=== PATIENT | male | born 1990 | race Caucasian/White ===

== ENCOUNTER 2025-02-01 12:43 | Emergency (ER) | payer OTHER ==
[~2025-02-01] VITALS: Ht 170.2 cm; Wt 68.0 kg
[2025-02-01 13:06] VITALS: BP 144/95
[2025-02-02] MEDS ORDERED: LIDO700A20 TOP (04:47)
[2025-02-02] MEDS ORDERED: Ibuprofen600 MG PO (04:47)
[2025-02-02] MEDS ORDERED: HYDR1TAB94 PO (04:47)
== END 2025-02-01 13:11 | disposition home or self-care (01) ==
LOC: ER 12:43
DX: F11.90 Opioid use, unspecified, uncomplicated (principal); Z76.0 Encounter for issue of repeat prescription
CPT/HCPCS: 99282

== ENCOUNTER 2025-02-01 22:56 | Emergency (ER) | payer OTHER ==
[~2025-02-01] VITALS: Ht 177.8 cm; Wt 74.8 kg
[2025-02-01 23:08] VITALS: BP 132/96
[2025-02-02 00:57] LABS: BASOPHILS ABSOLUTE AUTO 0.04 K/mm3 (0.00-0.23); BASOPHILS PERCENT AUTO 0 % (0-2); EOSINOPHILS ABSOLUTE AUTO 0.08 K/mm3 (0.00-0.68); EOSINOPHILS PERCENT AUTO 1 % (0-6); Hematocrit 41.1 % (37.0-53.0); Hemoglobin 14.1 g/dL (13.5-17.5); IMMATURE GRAN ABSOLUTE AUTO 0.07 K/mm3 (0.00-0.10); IMMATURE GRAN PERCENT AUTO 1 % (0-1); LYMPHOCYTES ABSOLUTE AUTO 2.74 K/mm3 (0.84-5.20); LYMPHOCYTES PERCENT AUTO 19 % (21-46); MONOCYTES ABSOLUTE AUTO 1.36 K/mm3 (0.16-1.47); MONOCYTES PERCENT AUTO 10 % (4-13); Mean Corpuscular HGB 30.4 pg (26.0-34.0); Mean Corpuscular HGB Conc 34.3 g/dL (31.5-36.5); Mean Corpuscular Volume 89 fL (80-100); Mean Platelet Volume 9.7 fL (9.1-12.4); NEUTROPHILS ABSOLUTE AUTO 10.08 K/mm3 (1.96-9.15); NEUTROPHILS PERCENT AUTO 70 % (41-73); Platelet Count 343 K/mm3 (150-400); RDW Standard Deviation 42.3 fL (35.1-46.3); Red Blood Cell Count 4.64 M/mm3 (4.30-5.90); White Blood Cell Count 14.37 K/mm3 (4.00-11.30)
[2025-02-02 01:21] LABS: Albumin, Blood 4.3 g/dL (3.4-5.0); Albumin/Globulin Ratio 1.2 (0.8-1.8); Bilirubin, Total 0.2 mg/dL (0.1-1.0); Bun/Creatinine Ratio 25.6 (12.0-20.0); Calcium, Blood 9.1 mg/dL (8.5-10.1); Creatinine, Blood 0.86 mg/dL (0.60-1.20); Globulin, Blood 3.7 g/dL (2.2-4.0); Potassium, Blood 3.7 mmol/L (3.5-5.5)
[2025-02-02] MEDS ORDERED: NS 1,000 ML IV SCH (02:25)
[2025-02-02] MEDS ORDERED: Morphine Sulfate 4 MG/1 ML Injection IV ONE (02:25)
[2025-02-02] MEDS ORDERED: Ondansetron HCl 2 MG / ML 2ML Vial IV ONE (02:25)
[2025-02-02] MEDS ORDERED: HYDR1TAB94 PO (04:47)
[2025-02-02] MEDS ORDERED: Ibuprofen600 MG PO (04:47)
[2025-02-02] MEDS ORDERED: LIDO700A20 TOP (04:47)
== END 2025-02-02 05:04 | disposition home or self-care (01) ==
LOC: ER 22:56
PROVIDERS: Student in an Organized Health Care Education/Training Program
DX: S32.029A Unspecified fracture of second lumbar vertebra, initial encounter for closed fracture (principal); S32.039A Unspecified fracture of third lumbar vertebra, initial encounter for closed fracture; S32.049A Unspecified fracture of fourth lumbar vertebra, initial encounter for closed fracture; V29.99XA Rider (driver) (passenger) of other motorcycle injured in unspecified traffic accident, initial encounter
CPT/HCPCS: 70450; 71260; 72125; 72131; 72192; 74177; 80053; 85025; 96374-59; 96375; 99284-25; J2270; J2405; J7030; Q9967

== ENCOUNTER 2025-04-20 12:02 | Emergency (ER) | payer OTHER ==
[~2025-04-20] VITALS: Ht 177.8 cm; Wt 79.4 kg
[~2025-04-20 12:02] MED LIST: HYDR1TAB94 PO; Ibuprofen600 MG PO; LIDO700A20 TOP
[2025-04-20 12:36] VITALS: BP 125/83
== END 2025-04-20 12:51 | disposition home or self-care (01) ==
LOC: ER 12:02
DX: Z76.0 Encounter for issue of repeat prescription (principal)
CPT/HCPCS: 99281; A9270